=== PATIENT | male | born 1970 | race Caucasian/White ===

== ENCOUNTER 2021-02-10 12:11 | Emergency (ER) | payer SELFPAY ==
[2021-02-10 12:40] VITALS: BP 0/0; PULSE 0; TEMP 0; BMI 30.7
== END 2021-02-10 15:00 | disposition expired ==
LOC: JER 12:11
DX: S09.90XA Unspecified injury of head, initial encounter (principal); I46.8 Cardiac arrest due to other underlying condition
CPT/HCPCS: 99285-25